=== PATIENT | male | born 1985 | race Caucasian/White ===

== ENCOUNTER 2025-05-28 13:44 | Emergency (ER) | payer SELFPAY ==
[2025-05-28 13:52] VITALS: BP 127/87
[2025-05-28 14:17] LABS: Hematocrit 44.0 % (39.0-52.0); Hemoglobin 15.4 g/dL (13.0-18.0); Mean Corp Hgb Conc. 35.0 g/dL (33.0-37.0); Mean Corpuscular Volume 80.3 fL (80.0-94.0); Nucleated Red Blood Cells % 0 % (-); Platelet Count 209 10^3/uL (130-400); Red Cell Dist. Width 12.0 % (11.5-14.5)
[2025-05-28 14:38] LABS: ALT (SGPT) 27 U/L (0-50); AST (SGOT) 26 U/L (17-59); Albumin 4.8 g/dl (3.5-5.0); Alkaline Phosphatase 94 U/L (38-126); Blood Urea Nitrogen 16 mg/dl (9-20); Calcium 9.2 mg/dl (8.4-10.2); Carbon Dioxide 24 mmol/L (22-30); Chloride 105 mmol/L (98-107); Glucose 106 mg/dl (70-99); Potassium 4.3 mmol/L (3.5-5.1); Sodium 136 mmol/L (135-145); Total Protein 7.3 g/dl (6.3-8.2); eGFR > 60.00
[2025-05-28 14:42] LABS: Troponin I < 0.012 ng/ml
--- NOTE | 2025-05-28 16:09 | ED.GENMED ---
History of Present Illness
General
Chief Complaint: Dizziness
Time Seen by Provider: 05/28/25 16:09
History of Present Illness
History of Present Illness:
FOCUSED PAST MEDICAL HISTORY
- Cardiac arrest/[place] 2022
REVIEW OF OLD RECORDS
- I reviewed report for old EKG in E January you have that showed lateral ST-T abnormality pic on his phone
Note:
CHIEF COMPLAINT(S)
Dizziness, lightheadedness, and upset stomach.
HISTORY OF PRESENT ILLNESS
The patient is a 40-year-old male with a significant past medical history of myocardial infarction two years ago, which resulted in cardiac arrest during a hockey game. He required resuscitation and subsequent cardiac catheterization, revealing
three arteries (OM2, LAD, and a third unidentified one) were 100% occluded. He presented today after experiencing dizziness and lightheadedness around 9:00 AM while helping a friend with some work. The symptoms were accompanied by nausea and
vomiting, but no diarrhea. He reported no chest pain, pressure, or shortness of breath. He did not have these kind of symptoms when he had the cardiac arrest. The symptoms intermittently improved with hydration but returned, prompting him to visit
the emergency department around 1:00 PM. Previous blood work was conducted around 1:00 PM. The patient has an abnormal EKG finding with frequent premature ventricular contractions (PVCs), which he has been told about previously. Despite the symptoms
prompted today�s visit, he does not have a pacemaker and has not experienced such intense dizziness and lightheadedness before.
CHRONIC MEDICAL CONDITIONS SIGNIFICANTLY AFFECTING CARE
The patient has a history of myocardial infarction with cardiac arrest and subsequent reduced ejection fraction (EF) of 13% initially, which improved to 42% after wearing a LifeVest for three months.
SOCIAL DETERMINANTS AFFECTING HEALTH
The patient does not currently have health insurance, which affects his ability to access consistent follow-up care.
REVIEW OF SYSTEMS
- Cardiovascular: Reports dizziness and lightheadedness, no chest pain, and no shortness of breath.
- Gastrointestinal: Reports nausea and vomiting, no diarrhea.
PHYSICAL EXAM
General: Alert, no acute distress. Elevated BMI
Skin: Warm, dry.
Head: Normocephalic, atraumatic.
Neck: Supple, trachea midline.
Eyes, Ears, Nose, Mouth, and Throat: Oral mucosa moist.
Cardiovascular: Normal peripheral perfusion, no edema. Occasional ectopy noted otherwise normal rhythm and rate
Respiratory: Respirations are non-labored.
Gastrointestinal: Abdomen nondistended.
Back: Normal range of motion, normal alignment.
Musculoskeletal: Normal range of motion, normal strength.
Neurological: Alert and oriented to person, place, time, and situation, no focal neurological deficit observed.
Psychiatric: Cooperative, appropriate mood, and affect.
PROBLEM LIST
Acute:
1. Dizziness and lightheadedness�resolved
2. Gastrointestinal upset with nausea and vomiting�resolved
Chronic:
1. History of myocardial infarction with cardiac arrest
2. Abnormal EKG with frequent PVCs
PLAN
The patient expressed a desire to return home instead of undergoing additional tests, such as repeat cardiac blood work. He is advised to follow up with his pain management specialist at [facility]. The patient is encouraged to maintain regular follow-up
appointments and to seek medical attention if symptoms like chest pain or significant shortness of breath occur.
DIFFERENTIAL DIAGNOSIS
The Differential Diagnosis includes, in no particular order and is not limited to:
1. Cardiac arrhythmia
2. Postural hypotension
3. Vasovagal syncope
4. Dehydration
5. Vestibular dysfunction
6. Gastroenteritis
7. Anxiety or panic disorder
8. Orthostatic intolerance
9. Hypoglycemia
10. Anemia
Disposition:
SUMMARY OF ENCOUNTER
The patient, a 40-year-old male with a history of myocardial infarction, experienced approximately four hours of lightheadedness, accompanied by nausea and vomiting. These symptoms improved post-vomiting. He presented without chest pain and
currently reports feeling well. Despite having an abnormal EKG with a lateral T-wave abnormality, the patient declined further evaluation, including a repeat troponin test, after I explained the rationale. He requested to return home and is eager to
leave the emergency department.
DISPOSITION
Discharge to home.
PLAN
The patient is advised to follow up with his pain management specialist at [facility] for further evaluation. He should seek immediate medical attention if symptoms like chest pain or significant shortness of breath arise.
INDEPENDENT REVIEW OF LABS AND INTERPRETATION OF TESTS
My independent review of his previous records through the [facility] charting system indicates a lateral T-wave abnormality, consistent with past findings.
PATIENT EDUCATION AND COUNSELING
The patient was educated on the importance of follow-up with a pain management specialist due to his cardiac history and instructed to seek medical attention for any significant chest pain or shortness of breath.
FOLLOW-UP INSTRUCTIONS
The patient should follow up with his pain management specialist at [facility].
MEDICAL DECISION MAKING
- Number and Complexity of Problems Addressed: Chronic conditions affecting care include a history of myocardial infarction with cardiac arrest and an abnormal EKG with frequent PVCs. Differential diagnosis includes cardiac arrhythmia, postural
hypotension, vasovagal syncope, dehydration, vestibular dysfunction, gastroenteritis, anxiety or panic disorder, orthostatic intolerance, hypoglycemia, and anemia.
- Data:
Category 1: Reviewed prior records, observed lateral T-wave abnormality consistent with past EKG findings.
Category 2: None mentioned.
Category 3: Patient declined repeat testing after discussion of management options.
- Risk: Given the patients significant cardiac history, the consideration of escalation to admission was entertained, but the patient was ultimately discharged with instructions for outpatient management and close follow-up. Social determinants
affecting health include the patients lack of health insurance, impacting ongoing care access.
DIAGNOSIS
1. Dizziness and lightheadedness (R42)
2. Nausea and vomiting (R11.2)
3. History of myocardial infarction (I25.2)
EKG
- Sinus 68, normal axis, lateral T wave abnormality in 1, L, V5, V6 with no old to compare
LABS
- CBC normal, chemistries including troponin unremarkable
Phy Exam
Physical Exam
Physical Exam:
See HPI
Course
Orders/Labs/Results
Orders:
Orders
05/28/25 13:46
EKG [Electrocardiogram (*1)] Urgent
Reason for Study: Vertigo / Dizzy
EKG- Treatment ONCE
05/28/25 14:02
Complete Blood Count/With Diff Urgent
Comprehensive Metabolic Panel Urgent
Troponin I Urgent
Abnormal Lab Results
05/28/25
14:02
Glucose 106 H mg/dl
(70-99)
05/28/25 14:02
05/28/25 14:02
Vital Signs
Initial and Last Documented VS:
Initial Vital Signs
Temp Pulse Resp BP Pulse Ox
36.6 C 74 16 127/87 98
05/28/25 13:52 05/28/25 13:52 05/28/25 13:52 05/28/25 13:52 05/28/25 13:52
Last Documented Vital Signs
Temp Pulse Resp BP Pulse Ox
36.6 C 74 16 127/87 98
05/28/25 13:52 05/28/25 13:52 05/28/25 13:52 05/28/25 13:52 05/28/25 16:10
*Pulse Oximetry
SaO2: 98
Oxygen Mode of Delivery: Room air
Patient hypoxic: no
*Critical Care Note
Total Time (30-74mins, 75-104mins- exclusive of procedures): Not Applicable
ED Attending Note
-
Portions of this chart may have been created with voice recognition software.� Occasional wrong word or��sound alike� substitutions may have occurred due to the inherent limitations of voice recognition software.
Discharge Plan
Departure
Patient Disposition: Home (Routine Discharge)
Date of Disposition: 05/28/25
Time of Disposition: 16:25
Patient with high blood pressure during this ER visit?: Yes
Discharge Problem:
Lightheadedness
Instructions: Dizziness, BLOOD PRESSURE
Activity Restrictions/Additional Instructions:
The cause of your symptoms is unclear. We did talk about your abnormality on EKG regarding the lateral leads. I did review the notes from [facility] which indicate that this is likely old based on prior EKG. Your basic blood work including CBC and
chemistries as well as troponin all came back normal. We did talk about repeating a troponin for further cardiac evaluation given your history, however you have declined. I strongly recommend you follow-up with your pain management specialist. Return here if
worse or other concerns.
Discharge Date and Time
Print Language: ITALIAN
== END 2025-05-28 16:30 | disposition home or self-care (01) ==
LOC: EMR 13:44
PROVIDERS: Emergency Medicine; EMERGENCY PHYSICIAN Emergency Medicine
DX: R42 Dizziness and giddiness (principal); R03.0 Elevated blood-pressure reading, without diagnosis of hypertension; I49.3 Ventricular premature depolarization; I25.2 Old myocardial infarction; Z86.74 Personal history of sudden cardiac arrest; Z59.71 Insufficient health insurance coverage
CPT/HCPCS: 99284; 80053; 84484; 85025; 93005